=== PATIENT | female | born 1995 | race Caucasian/White ===

== ENCOUNTER 2019-12-04 00:50 | Emergency (ER) | payer OTHER ==
[~2019-12-04] VITALS: Ht 167.6 cm; Wt 68.0 kg
--- NOTE | 2019-12-04 01:10 | NUR ---
Dr. Ann at bedside for MSE.
[2019-12-04] MEDS ORDERED: MECLIZINE HCL 25 MG TABLET PO ONE (01:15)
[2019-12-04] MEDS ORDERED: ONDANSETRON ODT 4 MG TAB.RAPDIS SL ONE ×2 (01:15→03:30)
[2019-12-04] MEDS ORDERED: MECLIZINE HCL 25 MG TABLET ONE (01:16)
[2019-12-04] MEDS ORDERED: ONDANSETRON ODT 4 MG TAB.RAPDIS ONE ×2 (01:17→03:21)
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
--- NOTE | 2019-12-04 01:27 | NUR ---
Pt out of ER for CT.
--- NOTE | 2019-12-04 01:49 | NUR ---
Pt back to ER from [place].
--- NOTE | 2019-12-04 03:22 | NUR ---
Patient given written and verbal discharge instructions. Patient verbalizes understanding of instructions. Patient is ambulatory with steady gait. Refuses offer of senior living placement. Patient given list of available shelters in surrounding area. Pt to be driven home by uncle via private vehicle.
[2019-12-04 03:25] VITALS: BP 115/80
== END 2019-12-04 03:25 | disposition home or self-care (01) ==
LOC: ER 00:55
DX: S00.03XA Contusion of scalp, initial encounter (principal); F41.9 Anxiety disorder, unspecified; R42 Dizziness and giddiness; Z60.2 Problems related to living alone; W17.89XA Other fall from one level to another, initial encounter; Y93.89 Activity, other specified; Y92.59 Other trade areas as the place of occurrence of the external cause; Y99.8 Other external cause status
CPT/HCPCS: 70450; 70486; A4663; J8597; Q0162